=== PATIENT | male | born 1990 | race African-American/Black ===

== ENCOUNTER 2021-12-18 02:43 | Emergency (ER) | payer BC ==
[2021-12-18] MEDS ORDERED: Albuterol 6.7 GM Inhaler INH ONE (03:15)
== END 2021-12-18 04:20 | disposition home or self-care (01) ==
LOC: JD.ED 02:43
DX: J06.9 Acute upper respiratory infection, unspecified (principal); Z91.018 Allergy to other foods; Z86.16 Personal history of COVID-19; Z20.822 Contact with and (suspected) exposure to COVID-19
CPT/HCPCS: 87635; 99285; A9270; 99283; U0002